=== PATIENT | female | born 1985 | race Caucasian/White ===

== ENCOUNTER 2022-04-07 12:27 | Emergency (ER) | payer SELFPAY ==
[2022-04-07 12:35] VITALS: BP 152/112; PULSE 92; RESP 16; TEMP 37.1; O2SAT 98; BMI 35.4
[2022-04-07 12:43] VITALS: O2SAT 93
[2022-04-07 12:47] VITALS: BP 119/84; PULSE 83; RESP 16; O2SAT 95
--- NOTE | 2022-04-07 12:52 | XR_ITS ---
WS: [id number] Exam: XR chest 1V portable [id number] Date/Time of Exam: 04/07/2022 12:57 PM Reason For Exam: Covid symptoms No priors. Findings: The lungs are clear and fully expanded. Costophrenic angles are sharp. No infiltrates. Bronchovascula r relief appears normal. Cardiac silhouette is unremarkable. Bony elements are intact. XR/XR chest 1V portable [id number] IMPRESSION: Unremarkable chest radiograph.
--- NOTE | 2022-04-07 13:38 | W.ED.COVID ---
HPI - COVID General: Chief Complaint: COVID symptoms Stated Complaint: Covid Symptoms, [place] Time Seen by Provider: 04/07/22 12:46 History of Present Illness: Patient is a 36-year-old female comes to the ED with headache and fever. Symptoms started yesterday. Patient was recently exposed to a person who tested positive for COVID-19 within the last couple days. COVID 19 common symptoms: positive fever(s) and headache(s); negative chills, non-productive cough, productive cough, dyspnea, fatigue, throat pain, nasal congestion, nausea, vomiting or diarrhea COVID 19 other sytmptoms: negative chest pain COVID Results: SARS-CoV-2 (PCR) Detected (NOT DETECT) A 04/07/22 13:12 04/07/22 Coronavirus Type 229E (PCR) Not detected (NOT DETECT) 04/07/22 13:12 04/07/22 Review of Systems Const: Reports: fever(s); Denies: chills or fatigue Eyes: Denies: change in vision or eye discomfort ENMT: Denies: throat pain, odynophagia, nasal discharge or nasal congestion Card: Denies: chest pain, palpitations, edema, swelling of feet/ankles, dyspnea on exertion or orthopnea Resp: Denies: dyspnea, productive cough or non-productive cough GI: Denies: abdominal pain, nausea, vomiting, diarrhea, constipation or hematochezia : Denies: flank pain, dysuria or hematuria Musc: Denies: neck pain, back pain or extremity swelling Skin/Breast: Denies: rash or new lesions Neuro: Reports: headache(s); Denies: numbness in extremities or weakness in extremities PFS ED PFSH: Medical History No pertinent family history Surgical History No pertinent past surgical history Physical Exam Const: COMMON NORMALS: patient oriented x3, healthy appearing and alert GENERAL APPEARANCE: cooperative HENMT: COMMON NORMALS: normocephalic HEAD & SCALP: normocephalic MOUTH: Normal oral and palatal mucosa present THROAT: posterior oropharynx normal and uvula midline Neck/C-Spine: COMMON NORMALS: supple GENERAL: Yes normal visual inspection Resp: COMMON NORMALS: normal respiratory effort, No retractions, No use of accessory muscles and clear to auscultation bilaterally AUSCULTATION: clear to auscultation bilaterally Cardio: COMMON NORMALS: regular rate, regular rhythm, S1 normal heart sound present, S2 normal heart sound present, No gallops present (Cardio), No clicks present (Cardio), No murmurs present (Cardio) and Peripheral pulses 2+ throughout RATE: regular rate RHYTHM: regular rhythm HEART SOUNDS: S1 normal heart sound present and S2 normal heart sound present PERIPHERAL PULSES: Peripheral pulses 2+ throughout GI: COMMON NORMALS: Normal to inspection, nondistended, normoactive bowel sounds present, Soft to palpation, non-tender and no masses PALPATION: Yes Soft to palpation : COMMON NORMALS: Yes no CVA tenderness BLADDER/KIDNEY EXAM: Yes no CVA tenderness Back/Pelvis: COMMON NORMALS: no CVA tenderness Extremity: COMMON NORMALS: normal to inspection Neuro: COMMON NORMALS: patient oriented x3 and moves all extremities SENSORIUM/ORIENTATION: Yes alert Skin: GENERAL SKIN EXAM: dry skin Course Vital Signs: Vital signs: Vital Signs Temperature 98.8 F 04/07/22 12:35 Pulse Rate 80 04/07/22 14:05 Respiratory Rate 16 04/07/22 12:47 Blood Pressure 136/89 04/07/22 14:05 Pulse Oximetry 95 04/07/22 14:05 MDM - COVID Medical Decision Making Patient is a 36-year-old female comes to the ED with COVID symptoms. She is having a fever and a headache. She was recently exposed to somebody who tested positive for COVID-19. Vitals are stable patient appears nontoxic and in no acute distress or pain. Rest of exam is benign. Chest x-ray showed no acute findings. COVID test came back positive. Patient diagnosed with COVID-19 and viral syndrome and was discharged home. She was told to follow-up with her PCP in the next week for reevaluation. Return to ED precautions given. Patient is to agree with plan. Lab Data I reviewed the patient's lab results. Radiology Impressions Chest X-Ray 04/07/22 12:52 IMPRESSION: Unremarkable chest radiograph. Laboratory Results Nasal Influ A H1 2009 PCR Not detected (NOT DETECT) 04/07/22 13:12 Coronavirus 229E (PCR) Not detected (NOT DETECT) 04/07/22 13:12 Influenza A (H1) PCR Not detected (NOT DETECT) 04/07/22 13:12 Influenza A (H3) PCR Not detected (NOT DETECT) 04/07/22 13:12 Influenza Type A (PCR) Not detected (NOT DETECT) 04/07/22 13:12 Influenza Type B (PCR) Not detected (NOT DETECT) 04/07/22 13:12 SARS-CoV-2 (PCR) Detected (NOT DETECT) A 04/07/22 13:12 SARS-CoV-2 (PCR) Detected (NOT DETECT) A 04/07/22 13:12 04/07/22 Coronavirus Type 229E (PCR) Not detected (NOT DETECT) 04/07/22 13:12 04/07/22 Discharge Plan Discharge Patient Disposition: Home Clinical Impression: COVID-19, Viral syndrome Condition: Stable Discharge Orders: Discharge ED (Routine); Ordered 04/07/22 Ordered By: Femi White Discharge Diet: Regular Discharge Activity: Increase activity as tolerated Activity Restrictions/Additional Instructions: Follow-up with medical provider as directed in the next 5 to 7 days for reevaluation. COVID-19 test is pending and should be back within the next couple hours. You can contact [facility] later today to find out COVID-19 test results. Drink plenty of fluids and stay hydrated. Take [id number] Tylenol for any fevers. Take [id number] meds to manage symptoms. Return to the ER or your medical provider if condition worsens. Please read and understand discharge instructions. Coding Level of Care Code ED [employer] Order Clerk for [facility] Fwtisha Exam Comprehensive
[2022-04-07] MEDS: acetaminophen 500 mg Tablet 1000 MG PO (13:50)
[2022-04-07 14:05] VITALS: BP 136/89; PULSE 80; O2SAT 95
[2022-04-07 15:14] LABS: Adenovirus Not Detected (NOT DETECT); Chlamydia Pneumoniae Not Detected (NOT DETECT); Coronavirus 229E,HKU1,NL63,OC4 Not Detected (NOT DETECT); Human Metapneumovirus Not Detected (NOT DETECT); Human Rhinovirus/Enterovirus Not Detected (NOT DETECT); Influenza A Not Detected (NOT DETECT); Influenza A H1 Not Detected (NOT DETECT); Influenza A H1-2009 Not Detected (NOT DETECT); Influenza A H3 Not Detected (NOT DETECT); Influenza B Not Detected (NOT DETECT); Mycoplasma Pneumoniae Not Detected (NOT DETECT); Parainfluenza Virus Type 1 Not Detected (NOT DETECT); Parainfluenza Virus Type 2 Not Detected (NOT DETECT); Parainfluenza Virus Type 3 Not Detected (NOT DETECT); Parainfluenza Virus Type 4 Not Detected (NOT DETECT); Respiratory Syncytial Virus A Not Detected (NOT DETECT); Respiratory Syncytial Virus B Not Detected (NOT DETECT); SARS-COV-2 Detected (NOT DETECT)
[2022-04-07 15:23] LABS: Results from Genmark
== END 2022-04-07 14:07 | disposition home or self-care (01) ==
PROVIDERS: Emergency Provider Physician Assistant
DX: U07.1 COVID-19 (principal); B34.9 Viral infection, unspecified
CPT/HCPCS: 71045; 87631; 87635; 99283

== ENCOUNTER → 2023-12-06 15:30 | Outpatient (BNVA) | payer MEDICAID, SELFPAY | PROVIDERS: PCP Nurse Practitioner Family; Visit Provider Nurse Practitioner Family | DX: I10 Essential (primary) hypertension (principal); F41.9 Anxiety disorder, unspecified; F32.A Depression, unspecified | CPT/HCPCS: 80053; 80061; 82306; 82607; 84443; 85025 ==

== ENCOUNTER → 2024-06-12 09:14 | Outpatient (BNVA) | payer OTHER, SELFPAY | PROVIDERS: PCP Nurse Practitioner Family; Visit Provider Nurse Practitioner Psychiatric/Mental Health | DX: F41.1 Generalized anxiety disorder (principal); F43.12 Post-traumatic stress disorder, chronic | CPT/HCPCS: 80061; 83036 ==

== ENCOUNTER → 2024-06-27 09:21 | Outpatient (BNVA) | payer MEDICAID, SELFPAY ==
[2024-06-18 16:53] VITALS: BP 140/101; BMI 30.6
== END ==
PROVIDERS: PCP Nurse Practitioner Family; Visit Provider Nurse Practitioner Family
DX: N93.9 Abnormal uterine and vaginal bleeding, unspecified (principal)
CPT/HCPCS: 80053; 82306; 82670; 83001; 84144; 84146; 84443; 85025

== ENCOUNTER → 2024-08-28 15:43 | Outpatient (BNVA) | payer MEDICAID, SELFPAY ==
[2024-06-18 16:53] VITALS: BP 140/101; BMI 30.6
== END ==
PROVIDERS: PCP Nurse Practitioner Family; Referring Provider Nurse Practitioner Family; Visit Provider Nurse Practitioner Women's Health
DX: N93.9 Abnormal uterine and vaginal bleeding, unspecified (principal)
CPT/HCPCS: 83036; 84402; 84403

== ENCOUNTER → 2024-10-15 11:43 | Outpatient (BNVA) | payer MEDICAID, SELFPAY ==
[2024-06-18 16:53] VITALS: BP 140/101; BMI 30.6
== END ==
PROVIDERS: PCP Nurse Practitioner Family; Visit Provider Nurse Practitioner Family
DX: I10 Essential (primary) hypertension (principal); E55.9 Vitamin D deficiency, unspecified
CPT/HCPCS: 80053; 80061; 82306; 84443; 85025

== ENCOUNTER → 2024-11-14 10:35 | Outpatient (BNVA) | payer MEDICAID, SELFPAY ==
[2024-06-18 16:53] VITALS: BP 140/101; BMI 30.6
== END ==
PROVIDERS: PCP Nurse Practitioner Family; Visit Provider Nurse Practitioner Family
DX: R53.83 Other fatigue (principal)
CPT/HCPCS: 84439; 84443; 84481; 86376; 86800

== ENCOUNTER → 2024-12-24 15:47 | Outpatient (BNVA) | payer OTHER, SELFPAY ==
[2024-06-18 16:53] VITALS: BP 140/101; BMI 30.6
== END ==
PROVIDERS: PCP Nurse Practitioner Family; Visit Provider Nurse Practitioner Family
DX: G47.10 Hypersomnia, unspecified (principal); R00.2 Palpitations; E03.9 Hypothyroidism, unspecified
CPT/HCPCS: 84439; 84443

== ENCOUNTER 2025-02-06 13:22 | Outpatient (CLI) | payer MEDICAID, SELFPAY ==
[2024-06-18 16:53] VITALS: BP 140/101; BMI 30.6
== END 2025-02-06 13:23 | disposition home or self-care (01) ==
LOC: SLEEP 13:24
PROVIDERS: PCP Nurse Practitioner Family; Visit Provider Nurse Practitioner Family
DX: G47.33 Obstructive sleep apnea (adult) (pediatric) (principal)
CPT/HCPCS: G0399

== ENCOUNTER → 2025-02-07 07:59 | Outpatient (BNVA) | payer MEDICAID, SELFPAY ==
[2024-06-18 16:53] VITALS: BP 140/101; BMI 30.6
== END ==
PROVIDERS: PCP Nurse Practitioner Family; Referring Provider Nurse Practitioner Family; Visit Provider Internal Medicine
DX: E06.3 Autoimmune thyroiditis (principal); E03.8 Other specified hypothyroidism; F32.81 Premenstrual dysphoric disorder
CPT/HCPCS: 99204

== ENCOUNTER → 2025-02-20 11:40 | Outpatient (BNVA) | payer MEDICAID, SELFPAY ==
[2024-06-18 16:53] VITALS: BP 140/101; BMI 30.6
== END ==
PROVIDERS: PCP Nurse Practitioner Family; Visit Provider Nurse Practitioner Women's Health
DX: Z12.4 Encounter for screening for malignant neoplasm of cervix (principal)
CPT/HCPCS: 87624

== ENCOUNTER → 2025-03-27 14:46 | Outpatient (BNVA) | payer MEDICAID, SELFPAY ==
[2024-06-18 16:53] VITALS: BP 140/101; BMI 30.6
== END ==
PROVIDERS: PCP Nurse Practitioner Family; Visit Provider Orthopaedic Surgery
DX: M53.3 Sacrococcygeal disorders, not elsewhere classified (principal)
CPT/HCPCS: 72220; 99203

== ENCOUNTER → 2025-04-16 10:25 | Outpatient (BNVA) | payer MEDICAID, SELFPAY ==
[2024-06-18 16:53] VITALS: BP 140/101; BMI 30.6
== END ==
PROVIDERS: PCP Nurse Practitioner Family; Visit Provider Internal Medicine
DX: I10 Essential (primary) hypertension (principal); E28.2 Polycystic ovarian syndrome; E06.3 Autoimmune thyroiditis; E03.8 Other specified hypothyroidism
CPT/HCPCS: 80053; 80061; 82306; 82627; 83525; 84439; 84443; 85025; 86376

== ENCOUNTER → 2025-05-09 07:59 | Outpatient (BNVA) | payer MEDICAID, SELFPAY ==
[2024-06-18 16:53] VITALS: BP 140/101; BMI 30.6
== END ==
PROVIDERS: PCP Nurse Practitioner Family; Referring Provider Nurse Practitioner Family; Visit Provider Internal Medicine
DX: E28.2 Polycystic ovarian syndrome (principal); E03.8 Other specified hypothyroidism; E06.3 Autoimmune thyroiditis; F32.81 Premenstrual dysphoric disorder; E78.5 Hyperlipidemia, unspecified
CPT/HCPCS: 99214

== ENCOUNTER 2025-05-13 05:00 | Outpatient (RCR) | payer MEDICAID, SELFPAY ==
[2025-05-19 09:33] VITALS: BP 140/101; BMI 30.6
== END 2025-06-12 23:59 | disposition home or self-care (01) ==
LOC: TPT 05:00
PROVIDERS: PCP Nurse Practitioner Family; Visit Provider Orthopaedic Surgery
DX: M54.50 Low back pain, unspecified (principal); G89.29 Other chronic pain
CPT/HCPCS: 97161

== ENCOUNTER 2025-06-13 06:30 | Outpatient (RCR) | payer MEDICAID, SELFPAY | END 2025-07-13 23:59 | disposition home or self-care (01) | LOC: TPT 06:30 | PROVIDERS: PCP Nurse Practitioner Family; Visit Provider Orthopaedic Surgery | DX: M54.50 Low back pain, unspecified (principal); G89.29 Other chronic pain | CPT/HCPCS: 97110 ==

== ENCOUNTER → 2025-06-16 13:58 | Outpatient (BNVA) | payer OTHER, SELFPAY ==
[2025-05-19 09:33] VITALS: BP 140/101; BMI 30.6
== END ==
PROVIDERS: PCP Nurse Practitioner Family; Visit Provider Nurse Practitioner
DX: F41.1 Generalized anxiety disorder (principal); F84.0 Autistic disorder; F33.1 Major depressive disorder, recurrent, moderate
CPT/HCPCS: 83036

== ENCOUNTER → 2025-07-04 12:50 | Outpatient (BNVA) | payer MEDICAID, SELFPAY ==
[2025-06-23 15:19] VITALS: BP 142/104; BMI 39.2
== END ==
PROVIDERS: PCP Nurse Practitioner Family; Visit Provider Internal Medicine
DX: E28.2 Polycystic ovarian syndrome (principal); E03.8 Other specified hypothyroidism; E06.3 Autoimmune thyroiditis; F32.81 Premenstrual dysphoric disorder; E78.5 Hyperlipidemia, unspecified
CPT/HCPCS: 80053; 80061; 82043; 83036; 84439; 84443

== ENCOUNTER 2025-07-14 05:00 | Outpatient (RCR) | payer MEDICAID, SELFPAY ==
[2025-06-23 15:19] VITALS: BP 142/104; BMI 39.2
== END 2025-08-12 23:59 | disposition home or self-care (01) ==
LOC: TPT 05:00
PROVIDERS: PCP Nurse Practitioner Family; Visit Provider Orthopaedic Surgery
DX: M54.50 Low back pain, unspecified (principal); G89.29 Other chronic pain
CPT/HCPCS: 97110

== ENCOUNTER → 2025-08-25 08:33 | Outpatient (BNVA) | payer MEDICAID, SELFPAY ==
[2025-06-23 15:19] VITALS: BP 142/104; BMI 39.2
== END ==
PROVIDERS: PCP Nurse Practitioner Family; Visit Provider Internal Medicine
DX: E03.8 Other specified hypothyroidism (principal); E06.3 Autoimmune thyroiditis; E28.2 Polycystic ovarian syndrome; E55.9 Vitamin D deficiency, unspecified
CPT/HCPCS: 84439; 84443

== ENCOUNTER → 2025-08-26 11:23 | Outpatient (BNVA) | payer MEDICAID, SELFPAY ==
[2025-06-23 15:19] VITALS: BP 142/104; BMI 39.2
== END ==
PROVIDERS: PCP Nurse Practitioner Family; Visit Provider Internal Medicine
DX: E03.8 Other specified hypothyroidism (principal); E06.3 Autoimmune thyroiditis; E28.2 Polycystic ovarian syndrome; E55.9 Vitamin D deficiency, unspecified
CPT/HCPCS: 82530; 82570

== ENCOUNTER 2025-09-10 15:35 | Outpatient (RCR) | payer MEDICAID, SELFPAY ==
[2025-06-23 15:19] VITALS: BP 142/104; BMI 39.2
== END 2025-09-12 23:59 | disposition home or self-care (01) ==
LOC: TPT 15:35
PROVIDERS: PCP Nurse Practitioner Family; Visit Provider Orthopaedic Surgery
DX: M54.50 Low back pain, unspecified (principal); G89.29 Other chronic pain
CPT/HCPCS: 97110; 97140

== ENCOUNTER 2025-10-07 12:18 | Outpatient (RCR) | payer MEDICAID, SELFPAY ==
[2025-06-23 15:19] VITALS: BP 142/104; BMI 39.2
== END 2025-10-12 23:59 | disposition home or self-care (01) ==
LOC: TPT 12:18
PROVIDERS: PCP Nurse Practitioner Family; Visit Provider Orthopaedic Surgery
DX: M54.50 Low back pain, unspecified (principal); G89.29 Other chronic pain
CPT/HCPCS: 97110

== ENCOUNTER → 2025-10-30 09:31 | Outpatient (BNVA) | payer MEDICAID, SELFPAY ==
[2025-06-23 15:19] VITALS: BP 142/104; BMI 39.2
== END ==
PROVIDERS: PCP Nurse Practitioner Family; Visit Provider Internal Medicine
DX: E06.3 Autoimmune thyroiditis (principal); E78.5 Hyperlipidemia, unspecified
CPT/HCPCS: 80061; 84443

== ENCOUNTER 2025-11-03 12:11 | Outpatient (RCR) | payer MEDICAID, SELFPAY ==
[2025-06-23 15:19] VITALS: BP 142/104; BMI 39.2
== END 2025-11-12 23:59 | disposition home or self-care (01) ==
LOC: TPT 12:11
PROVIDERS: PCP Nurse Practitioner Family; Visit Provider Orthopaedic Surgery
DX: M54.9 Dorsalgia, unspecified (principal); G89.29 Other chronic pain
CPT/HCPCS: 97110; 97161